=== PATIENT | female | born 1990 | race Two or more races ===

== ENCOUNTER 2021-01-04 08:56 | Outpatient (CLI) | payer OTHER | END 2021-01-04 09:57 | disposition home or self-care (01) | LOC: NST 08:56 | PROVIDERS: ATTEND Obstetrics & Gynecology Maternal & Fetal Medicine | DX: Z34.83 Encounter for supervision of other normal pregnancy, third trimester (principal) ==

== ENCOUNTER 2021-01-18 13:00 | Inpatient (IN) | payer OTHER ==
[~2021-01-18] VITALS: Ht 170.2 cm; Wt 63.5 kg
[2021-02-13] MEDS ORDERED: PRENATABS RX T1 EACH PO (13:00)
[2021-02-14] MEDS ORDERED: CONCEPT DHA CA1 EACH (15:18)
[2021-02-14] MEDS ORDERED: DOXYLAMINE-PYR1 EACH (15:18)
== END 2021-02-15 13:19 | disposition home or self-care (01) | DRG 768 ==
LOC: LDR 02-09 13:00 → OB/GYN 02-13 08:59 → LDR 02-13 08:59 → OB/GYN 02-13 17:10 → LDR 02-13 17:13 → OB/GYN 02-13 17:34
PROVIDERS: ADMIT Obstetrics & Gynecology Maternal & Fetal Medicine; ATTEND Obstetrics & Gynecology Maternal & Fetal Medicine
PROC: 10E0XZZ Delivery of Products of Conception, External Approach (ICD-10-PCS; principal; 2021-02-13)
PROC: 0DQR0ZZ Repair Anal Sphincter, Open Approach (ICD-10-PCS; 2021-02-13)
PROC: 3E033VJ Introduction of Other Hormone into Peripheral Vein, Percutaneous Approach (ICD-10-PCS; 2021-02-13)
PROC: 4A1HXFZ Monitoring of Products of Conception, Cardiac Rhythm, External Approach (ICD-10-PCS; 2021-02-13)
DX: O70.20 Third degree perineal laceration during delivery, unspecified (principal); Z37.0 Single live birth; Z3A.40 40 weeks gestation of pregnancy

== ENCOUNTER → 2021-01-25 | Outpatient (CLI) | payer OTHER ==
[~2021-01-25] MED LIST: CONCEPT DHA CA1 EACH; DOXYLAMINE-PYR1 EACH; PRENATABS RX T1 EACH PO
== END | disposition home or self-care (01) ==
LOC: NST 11:35
PROVIDERS: ATTEND Obstetrics & Gynecology Maternal & Fetal Medicine
DX: Z34.83 Encounter for supervision of other normal pregnancy, third trimester (principal)

== ENCOUNTER 2021-02-05 09:39 | Outpatient (CLI) | payer OTHER | END 2021-02-05 10:34 | disposition home or self-care (01) | LOC: NST 09:39 | PROVIDERS: ATTEND Obstetrics & Gynecology | DX: Z34.83 Encounter for supervision of other normal pregnancy, third trimester (principal) ==

== ENCOUNTER 2021-02-09 08:56 | Outpatient (CLI) | payer OTHER | END 2021-02-09 14:09 | disposition home or self-care (01) | LOC: NST 08:56 | PROVIDERS: ATTEND Obstetrics & Gynecology | DX: Z34.83 Encounter for supervision of other normal pregnancy, third trimester (principal) ==